=== PATIENT | male | born 1970 | race African-American/Black ===

== ENCOUNTER 2019-02-22 00:49 | Emergency (ER) | payer OTHER, SELFPAY ==
[2019-02-22] MEDS ORDERED: Lidocaine 1% (PF) 30 ML VIAL ONE (01:04)
[2019-02-22] MEDS ORDERED: Acetaminophen 500 MG TAB ONE (01:38)
[2019-02-22] MEDS ORDERED: metFORMIN 500 MG TAB ONE (01:50)
== END 2019-02-22 02:00 | disposition home or self-care (01) ==
LOC: NAV ERS 00:49
DX: S01.511D Laceration without foreign body of lip, subsequent encounter (principal); E11.65 Type 2 diabetes mellitus with hyperglycemia; R55 Syncope and collapse; Z79.84 Long term (current) use of oral hypoglycemic drugs; Z79.899 Other long term (current) drug therapy; X58.XXXD Exposure to other specified factors, subsequent encounter
CPT/HCPCS: 12051; 36416; J2001